=== PATIENT | male | born 1955 | race Two or more races ===

== ENCOUNTER → 2016-09-23 | Outpatient (CLI) | payer OTHER ==
[~2016-09-23] VITALS: Ht 167.6 cm; Wt 78.5 kg
[~2016-09-23] MED LIST: ADENOSINE 66 MG in GIVE UN-DILUTED 0 ML IV ONE; ADENOSINE 90 MG/30 ML INJ IV ONE
== END | disposition home or self-care (01) ==
LOC: Rad HDHVI 08:20
PROVIDERS: ATTEND Internal Medicine Cardiovascular Disease
DX: I10 Essential (primary) hypertension (principal); I25.2 Old myocardial infarction; E78.00 Pure hypercholesterolemia, unspecified; Z95.1 Presence of aortocoronary bypass graft
CPT/HCPCS: 78452; 93005; 96374; 96375; A9500; J0153

== ENCOUNTER → 2017-02-11 | Outpatient (CLI) | payer OTHER | END | disposition home or self-care (01) | LOC: Rad HDHVI 10:34 | PROVIDERS: ATTEND Internal Medicine Cardiovascular Disease | DX: I42.0 Dilated cardiomyopathy (principal); E11.9 Type 2 diabetes mellitus without complications | CPT/HCPCS: 93306 ==

== ENCOUNTER 2018-11-26 21:44 | Emergency (ER) | payer MEDICARE, OTHER ==
[~2018-11-26] VITALS: Ht 167.6 cm; Wt 93.9 kg
[2018-11-26 22:07] VITALS: BP 144/73
[2018-11-27] MEDS ORDERED: ONDANSETRON ODT 4 MG TAB PO ONE (01:30)
[2018-11-27] MEDS ORDERED: LIDOCAINE W/ EPINEPHRINE 2% INJ 20ML VIAL IJ ONE (01:30)
[2018-11-27] MEDS ORDERED: TRIAMCINOLONE 40MG/ML 1ML VIAL IM ONE (01:30)
[2018-11-27] MEDS ORDERED: MEPERIDINE HCL (50 MG/ML) 1 ML VIAL IM ONE (01:30)
[2018-11-27] MEDS ORDERED: MEPERIDINE HCL (25 MG/ML) 1ML VIAL IM ONE (01:45)
== END 2018-11-27 02:16 | disposition home or self-care (01) ==
LOC: ER 21:50
DX: S33.5XXA Sprain of ligaments of lumbar spine, initial encounter (principal); M54.16 Radiculopathy, lumbar region; X50.9XXA Other and unspecified overexertion or strenuous movements or postures, initial encounter; Y93.89 Activity, other specified; Y92.89 Other specified places as the place of occurrence of the external cause; Y99.8 Other external cause status
CPT/HCPCS: 20552; 72131; 73700; 96372; 99284; J2175; J3301; Q0162

== ENCOUNTER → 2019-05-09 | Outpatient (CLI) | payer MEDICARE ==
[2019-05-09 10:59] LABS: Basophils # (auto) 0 uL; Basophils % (auto) 0.5 % (0.0-2.0); Eosinophils # (auto) 0.1 uL; Eosinophils % (auto) 1.7 % (0.0-7.0); Hematocrit 46.2 % (41.0-53.0); Hemoglobin 15.5 g/dL (13.5-17.5); Lymphocytes # (auto) 1.2 uL; Lymphocytes % (auto) 15.8 % (10.0-50.0); Mean Corpuscular Hgb Conc. 33.6 g/dL (32.0-36.0); Mean Corpuscular Volume 89.3 fL (80.0-100.0); Monocytes # (auto) 0.7 uL; Monocytes % (auto) 8.7 % (0.0-12.0); Neutrophils # (auto) 5.8 uL; Neutrophils % (auto) 73.3 % (37.0-80.0); Platelet Count (auto) 218 10^3/uL (140-450); Red Blood Cells 5.17 10^6/uL (4.5-5.90); Red Cell Distribution Width 12.9 % (11.8-14.3); White Blood Cell 7.9 10^3/uL (4.4-10.8)
[2019-05-09 11:11] LABS: Urine Bacteria FEW /hpf (None Seen); Urine Blood Negative /uL (Negative); Urine Hyaline Cast FEW /lpf (0 - 2); Urine Mucus FEW (None Seen); Urine Specific Gravity 1.016 (1.001-1.035); Urine WBC 1 /hpf (0 - 3)
[2019-05-09 11:30] LABS: Albumin 3.7 g/dL (3.4-5.0); Calcium 10.3 mg/dL (8.5-10.1); Potassium 4.4 mmol/L (3.5-5.1)
[2019-05-09 11:34] LABS: BUN/Creatinine Ratio 14.3; Bilirubin, Total 0.4 mg/dL (0.2-1.0); Total Protein 7.4 g/dL (6.4-8.2)
[2019-05-09 11:37] LABS: Free T4 (Free Thyroxine) 1.2 ng/dL (0.89-1.76); Prostate Specific Antigen 0.53 ng/mL (0.0-4.0)
== END | disposition home or self-care (01) ==
LOC: LAB 10:41
PROVIDERS: ATTEND Internal Medicine
DX: Z12.11 Encounter for screening for malignant neoplasm of colon (principal); E11.9 Type 2 diabetes mellitus without complications; I25.10 Atherosclerotic heart disease of native coronary artery without angina pectoris; R35.1 Nocturia
CPT/HCPCS: 36415; 80053; 80061; 81001; 82043; 82270; 83036; 84153; 84439; 84443; 85025; 85652

== ENCOUNTER 2019-08-31 07:21 | Day surgery (SDC) | payer MEDICARE, OTHER ==
[~2019-08-31] VITALS: Ht 167.6 cm; Wt 90.7 kg
[~2019-08-31 07:21] MED LIST changes: -ADENOSINE 66 MG in GIVE UN-DILUTED 0 ML IV ONE; -ADENOSINE 90 MG/30 ML INJ IV ONE; +ATOR20TA50 PO; +CHOL20007 PO; +CLOP75TA41 PO; +DOCU-94 PO; +FURO1TAB31 PO; +GLYB5TAB8 PO; +LEV50T PO; +LEVEMIR SC; +METF-371 PO; +METO-159 PO; +PANT40T PO; +POTA1TAB61 PO; +SACU1TAB PO; +TAMS0.4C36 PO; +TRAM50TA2 PO
[2019-08-31] MEDS ORDERED: LIDOCAINE 2%HCL (LOCAL ANESTH.) INJ 20ML MDV ONE (09:42)
[2019-08-31] MEDS ORDERED: ANGIOMAX 250 MG VIAL IV ONE (10:00)
[2019-08-31] MEDS ORDERED: SODIUM CHL 0.9% 0 ML ONE (10:00)
[2019-08-31] MEDS ORDERED: IOHEXOL 350 MG/ML 100ML IJ ONE ×2 (10:00→10:14)
[2019-08-31] MEDS ORDERED: MIDAZOLAM HCL 1MG/1ML-2 ML VIAL ONE (10:00)
[2019-08-31] MEDS ORDERED: fentaNYL CITRATE 100 MCG/2 ML VL ONE (10:00)
[2019-08-31] MEDS ORDERED: ACETAMINOPHEN 500 MG TAB PO PRN (11:45)
[2019-08-31] MEDS ORDERED: NITROGLYCERIN 0.4MG/DOSE SPRAY 4.9GM ONE (12:17)
== END 2019-08-31 12:40 | disposition home or self-care (01) ==
LOC: CATH 07:21
PROVIDERS: ATTEND Internal Medicine Cardiovascular Disease
DX: I25.10 Atherosclerotic heart disease of native coronary artery without angina pectoris (principal); I08.0 Rheumatic disorders of both mitral and aortic valves; I10 Essential (primary) hypertension; I25.2 Old myocardial infarction; E78.5 Hyperlipidemia, unspecified; E11.9 Type 2 diabetes mellitus without complications; E07.9 Disorder of thyroid, unspecified; Z95.1 Presence of aortocoronary bypass graft; Z79.4 Long term (current) use of insulin; Z79.84 Long term (current) use of oral hypoglycemic drugs; Z79.01 Long term (current) use of anticoagulants; Z79.899 Other long term (current) drug therapy; Z87.891 Personal history of nicotine dependence; Z98.890 Other specified postprocedural states
CPT/HCPCS: 93459; C1760; C1894; J1644; J2250; J3010; Q9967; 99152

== ENCOUNTER → 2019-11-03 | Outpatient (CLI) | payer MEDICARE, OTHER ==
[2019-11-03 15:39] LABS: Albumin 3.5 g/dL (3.4-5.0); BUN/Creatinine Ratio 20.2; Calcium 9.3 mg/dL (8.5-10.1); Potassium 4.8 mmol/L (3.5-5.1)
[2019-11-03 15:48] LABS: Bilirubin, Total 0.4 mg/dL (0.2-1.0); Total Protein 7.5 g/dL (6.4-8.2)
== END | disposition home or self-care (01) ==
LOC: LAB 14:59
PROVIDERS: ATTEND Internal Medicine
DX: I10 Essential (primary) hypertension (principal); E11.65 Type 2 diabetes mellitus with hyperglycemia
CPT/HCPCS: 36415; 80053; 82270; 83036

== ENCOUNTER 2021-11-13 07:03 | Day surgery (SDC) | payer MEDICARE, OTHER ==
[~2021-11-13] VITALS: Ht 170.2 cm; Wt 95.3 kg
[~2021-11-13 07:03] MED LIST changes: -CLOP75TA41 PO; +CLOP75TA70 PO; +SACU1TAB7 PO; +SILD100T57 PO
[2021-11-13] MEDS ORDERED: LIDOCAINE 2%HCL (LOCAL ANESTH.) INJ 10ml MDV ONE (07:31)
[2021-11-13] MEDS ORDERED: IODIXANOL 320MG/ML 100ML BTL IV ONE (07:31)
[2021-11-13] MEDS ORDERED: ANGIOMAX 250 MG VIAL IV ONE (08:35)
[2021-11-13] MEDS ORDERED: fentaNYL CITRATE 100 MCG/2 ML VL ONE (08:36)
[2021-11-13] MEDS ORDERED: MIDAZOLAM HCL 2MG/2ML 2ml VIAL (1mg/ml) ONE (08:36)
[2021-11-13] MEDS ORDERED: SODIUM CHL 0.9% 50 ML ONE (08:37)
[2021-11-13] MEDS ORDERED: IOHEXOL 350 MG/ML 100ML IJ ONE (09:09)
== END 2021-11-13 12:44 | disposition home or self-care (01) ==
LOC: CATH 07:03
PROVIDERS: ATTEND Internal Medicine Cardiovascular Disease
DX: E11.51 Type 2 diabetes mellitus with diabetic peripheral angiopathy without gangrene (principal); I10 Essential (primary) hypertension; E78.5 Hyperlipidemia, unspecified; Z79.02 Long term (current) use of antithrombotics/antiplatelets; Z82.49 Family history of ischemic heart disease and other diseases of the circulatory system; Z95.5 Presence of coronary angioplasty implant and graft; Z87.891 Personal history of nicotine dependence; Z20.822 Contact with and (suspected) exposure to COVID-19
CPT/HCPCS: 37228; C1760; C1887; C1894; J0583; J1644; J2001; J2250; J3010; J7030; Q9967; U0003; 99152; 99153

== ENCOUNTER → 2021-12-23 | Outpatient (CLI) | payer MEDICARE, OTHER ==
[2021-12-23 10:58] LABS: Basophils # (auto) 0 10 ^3/uL (0-0.2); Basophils % (auto) 0.4 % (0.0-2.0); Eosinophils # (auto) 0.1 10 ^3/uL (0-0.8); Eosinophils % (auto) 1.5 % (0.0-7.0); Hematocrit 45.1 % (41.0-53.0); Hemoglobin 15.4 g/dL (13.5-17.5); Lymphocytes # (auto) 2.4 10 ^3/uL (0.4-5.4); Lymphocytes % (auto) 25.7 % (10.0-50.0); Mean Corpuscular Hemoglobin 29.6 pg (28.0-32.0); Mean Corpuscular Hgb Conc. 34.1 g/dL (32.0-36.0); Mean Corpuscular Volume 86.9 fL (80.0-100.0); Monocytes # (auto) 0.7 10 ^3/uL (0-1.3); Monocytes % (auto) 7.1 % (0.0-12.0); Neutrophils # (auto) 6.1 10 ^3/uL (1.6-8.6); Neutrophils % (auto) 65.3 % (37.0-80.0); Nucleated Red Blood Cells % 0.1 %; Red Cell Distribution Width 13.8 % (11.8-14.3); White Blood Cell 9.4 10^3/uL (4.4-10.8)
[2021-12-23 11:26] LABS: Potassium 4.4 mmol/L (3.5-5.1)
[2021-12-23 11:38] LABS: Albumin 3.5 g/dL (3.4-5.0); BUN/Creatinine Ratio 16.1; Bilirubin, Total 0.4 mg/dL (0.2-1.0); Calcium 10.8 mg/dL (8.5-10.1); Total Protein 7.5 g/dL (6.4-8.2)
== END | disposition home or self-care (01) ==
LOC: LAB 10:39
PROVIDERS: ATTEND Internal Medicine
DX: E11.9 Type 2 diabetes mellitus without complications (principal); I10 Essential (primary) hypertension
CPT/HCPCS: 36415; 80053; 83036; 85025